=== PATIENT | female | born 1980 | race Caucasian/White ===

== ENCOUNTER 2017-08-26 15:56 | Outpatient (CLI) | payer MEDICAID ==
[2017-08-26 16:55] VITALS: BP 106/68
== END 2017-08-26 17:48 | disposition home or self-care (01) ==
LOC: TRG 15:56
PROVIDERS: ATTEND Obstetrics & Gynecology
DX: O09.523 Supervision of elderly multigravida, third trimester (principal); O47.1 False labor at or after 37 completed weeks of gestation; Z3A.38 38 weeks gestation of pregnancy
CPT/HCPCS: 59025

== ENCOUNTER 2017-09-04 14:52 | Inpatient (IN) | payer MEDICAID ==
[2017-09-04] MEDS ORDERED: BRETHINE IVP PRN ×2 (15:45→16:38)
[2017-09-04] MEDS ORDERED: ePHEDrine SULFATE IV PRN ×2 (15:45→16:38)
[2017-09-04] MEDS ORDERED: XYLOCAINE 2% INFILTRATI ONE ×2 (15:45→16:38)
[2017-09-04] MEDS ORDERED: MINERAL OIL PO PRN ×2 (15:45→16:38)
[2017-09-04] MEDS ORDERED: BRETHINE SUB-Q PRN ×2 (15:45→16:38)
[2017-09-04] MEDS ORDERED: LACTATED RINGERS 1,000 ML IV SCH (16:00)
[2017-09-04] MEDS ORDERED: PITOCin/NS 20 UNIT/1000ML DRIP 20 UNITS/1,000 ML BAG IV SCH ×2 (16:00→17:00)
[2017-09-04 16:15] LABS: Hematocrit 37.3 % (30.3-42.9); Hemoglobin 12.2 gm/dl (10.1-14.3); Mean Corpuscular HGB Conc 33 % (30-34); Mean Corpuscular Hemoglobin 30 pg (28-32); Mean Corpuscular Volume 92 fl (79-97); Platelet Count 238 K/mm3 (140-440); Red Blood Count 4.07 M/mm3 (3.65-5.03)
[2017-09-04] MEDS ORDERED: ZOFRAN IV PRN (16:38)
[2017-09-04] MEDS ORDERED: STADOL IV PRN (16:38)
[2017-09-04] MEDS ORDERED: PHENERGAN PO PRN (16:38)
--- NOTE | 2017-09-04 16:43 | History and Physical Report ---
History of Present Illness Date of examination: 09/04/17 Date of admission: 09/04/17 14:52 Chief complaint: Induction of labor History of present illness: Pt is a 37yo HF EDC 09/05/17; EGA 39 6/7 weeks presents to L&D for induction of labor per [facility] due to Oligohydramnios. She received care at [facility] since 19 weeks and course has been unremarkable except AMA for which she is co-managed by [facility]. BPP 08/19 today showed MAGUE 5.46cm. She is therefore sent to L&D for induction of labor. records are available and GBS is Positive. Past History Past Medical History: no pertinent history Past Surgical History: no surgical history [employer] History: abnormal PAP smear Social history: no significant social history, single - Obstetrical History : 3 Medications and Allergies Allergies Allergy/AdvReac Type Severity Reaction Status Date / Time No Known Allergies Allergy Unverified 08/26/17 16:12 Home Medications Medication Instructions Recorded Confirmed Last Taken Type No Known Home Medications [No 08/26/17 08/26/17 Unknown History Reported Home Medications] Active Meds: Active Medications Dinoprostone (Cervidil) 10 mg VG ONCE ONE Stop: 09/04/17 16:16 Ephedrine Sulfate (Ephedrine Sulfate) 10 mg IV Q2M PRN PRN Reason: Hypotension Fentanyl (Sublimaze) 100 mcg IV Q2H PRN PRN Reason: Labor Pain Lactated Ringer's (Lactated Ringers) 1,000 mls @ 125 mls/hr IV DIRECT FRANCI Oxytocin/Sodium Chloride (Pitocin/Ns 20 Unit/1000ml Drip) 20 units in 1,000 mls @ 125 mls/hr IV DIRECT FRANCI Mineral Oil (Mineral Oil) 30 ml PO QHS PRN PRN Reason: Constipation Terbutaline Sulfate (Brethine) 0.25 mg SUB-Q ONCE PRN PRN Reason: Hyperstimulation/Hypertonicity Terbutaline Sulfate (Brethine) 0.25 mg IVP ONCE PRN PRN Reason: Hyperstimulation/Hypertonicity Review of Systems All systems: negative - Vital Signs Vital signs: Vital Signs Temp 97.4 F L 09/04/17 15:37 Temp Pulse Resp BP Pulse Ox 97.4 F L 09/04/17 15:37 - Physical Exam Breasts: Positive: deferred Cardiovascular: Regular rate Lungs: Positive: Clear to auscultation Abdomen: Positive: normal appearance Genitourinary (Female): Positive: normal external genitalia Uterus: Positive: enlarged Extremities: Positive: normal - Obstetrical FHR: category 1 Uterine Contraction Monitor Mode: External Cervical Dilatation: 1 (per nurse) Cervical Effacement Percentage: 50 (per nurse) station: -3 Uterine Contraction Pattern: Absent Results Result Diagrams: 09/04/17 15:57 Abnormal lab results 09/04/17 Range/Units 15:57 RDW 17.0 H (13.2-15.2) % All other labs normal. Ultrasound: report reviewed Assessment and Plan - Patient Problems (1) 39 weeks gestation of Onset Date: 09/04/17 Current Visit: Yes Status: Acute Plan to address problem: A: IUP @ 39 6/7 weeks Oligohydramnios +GBS P: Admit to L&D for cervidel/pitocin induction of labor IV Ampicillin (2) Oligohydramnios in lizama in third trimester Onset Date: 09/04/17 Current Visit: Yes Status: Acute
[2017-09-04] MEDS ORDERED: PITOCin/NS 30 UNIT/500ML 30 UNITS/500 ML BAG IV SCH (17:00)
[2017-09-04] MEDS ORDERED: CERVIDIL VG ONE (17:15)
[2017-09-04] MEDS: LACTATED RINGERS 1,000 ML IV SCH ×2 (18:16→23:29)
[2017-09-04] MEDS ORDERED: AMBIEN PO PRN (21:38)
[2017-09-05] MEDS ORDERED: PITOCin/NS 30 UNIT/500ML 30 UNITS/500 ML BAG IV SCH (06:15)
[2017-09-05] MEDS: SUBLIMAZE IV PRN ×3 (09:10→14:52)
--- NOTE | 2017-09-05 11:18 | Progress Note ---
Assessment and Plan - Patient Problems (1) 39 weeks gestation of Onset Date: 09/04/17 Current Visit: Yes Status: Acute Plan to address problem: A: IUP @ 40 0/7 weeks Oligohydramnios GBS Negative P: Continue with pitocin induction of labor Expectant vaginal delivery (2) Oligohydramnios in lizama in third trimester Onset Date: 09/04/17 Current Visit: Yes Status: Acute Subjective - Subjective Date of service: 09/05/17 Principal diagnosis: IUP @ 40 0/7 weeks; Oligohydramnios Interval history: Pt is a 37yo HF EDC 09/05/17; EGA 40 0/7 weeks who presented to L&D for induction of labor per [facility] due to Oligohydramnios. She received cervidel last night and is currently on pitocin 4mu/min and jeanne q 3-4 mins Patient reports: movement normal, contractions, no new complaints, no loss of fluid, no vaginal bleeding Objective - Vital Signs Vital Signs: Vital Signs - 12hr 09/04/17 09/05/17 09/05/17 23:35 01:04 01:40 Temperature 97.2 F L Pulse Rate 73 76 82 Respiratory 18 Rate Blood Pressure 142/87 143/63 137/89 [Right] O2 Sat by Pulse 99 Oximetry 09/05/17 09/05/17 09/05/17 03:45 04:42 09:10 Temperature 97.0 F L Pulse Rate 91 H 72 Respiratory 18 18 Rate Blood Pressure 110/68 108/57 [Right] O2 Sat by Pulse 98 Oximetry 09/05/17 09/05/17 09:40 11:05 Temperature Pulse Rate Respiratory 18 16 Rate Blood Pressure [Right] O2 Sat by Pulse Oximetry - Exam Cardiovascular: Regular rate Lungs: Clear to auscultation Abdomen: Present: normal appearance, soft FHR: category 1 Uterine Contraction Monitor Mode: External Cervical Dilatation: 6 Cervical Effacement Percentage: 80 station: -2 Uterine Contraction Pattern: Regular Uterine Tone Measurement Phase: Contraction Uterine Contraction Intensity: Mild - Labs Labs: Abnormal Labs 09/04/17 15:57 RDW 17.0 H Laboratory Results - last 24 hr 09/04/17 09/04/17 09/04/17 15:57 15:57 22:23 WBC 8.1 RBC 4.07 Hgb 12.2 Hct 37.3 MCV 92 MCH 30 MCHC 33 RDW 17.0 H Plt Count 238 Hep Bs Antigen Non-reactive Blood Type A POSITIVE Antibody Screen Negative
[2017-09-05] MEDS: LACTATED RINGERS 1,000 ML IV SCH (12:03)
[2017-09-05] MEDS ORDERED: METHERGINE IM ONE ×2 (14:13→14:27)
--- NOTE | 2017-09-05 14:23 | Procedure Note ---
OB Delivery Note - Delivery Date of Delivery: 09/05/17 Surgeon: HEATHER AMAYA Estimated blood loss: other (600cc) - Vaginal Delivery presentation: vertex Delivery position: OA Intrapartum events: hemorrhage Delivery induction: cervidil Delivery augmentation: pitocin Delivery monitor: external FHT, external uterine Route of delivery: Delivery placenta: manual Delivery cord: nuchal cord (x1), 3 umbilical vessels Episiotomy: none Delivery laceration: none Anesthesia: intravenous Delivery comments: delivered OA with tight nuchal cord x1, and placed on Mom's chest for [id number] bonding and delayed cord clamping. hemorrhage managed with bimanual massage and IM Methergine. - Infant A at 1 minute: 8 at 5 minutes: 9 Infant Gender: Male (3881gms)
[2017-09-05] MEDS ORDERED: PHENERGAN PR PRN (14:30)
[2017-09-05] MEDS ORDERED: BENADRYL PO PRN (14:30)
[2017-09-05] MEDS ORDERED: PHENERGAN PO PRN (14:30)
[2017-09-05] MEDS ORDERED: LANSINOH TP PRN (14:30)
[2017-09-05] MEDS ORDERED: TYLENOL PO PRN (14:30)
[2017-09-05] MEDS ORDERED: ZOFRAN IV PRN (14:30)
[2017-09-05] MEDS ORDERED: TUCKS PAD TP PRN (14:30)
[2017-09-05] MEDS ORDERED: SODIUM CHLORIDE FLUSH SYRINGE 10 ML IV NR (15:00)
[2017-09-05] MEDS ORDERED: PITOCin/NS 20 UNIT/1000ML DRIP 20 UNITS/1,000 ML BAG IV SCH (15:00)
[2017-09-05] MEDS: NORCO 5/325 PO PRN (19:08)
[2017-09-05] MEDS ORDERED: DULCOLAX PR PRN (22:00)
[2017-09-05] MEDS ORDERED: MILK OF MAGNESIA PO PRN (22:00)
[2017-09-05] MEDS: COLACE PO SCH (23:14)
[2017-09-05] MEDS: FEOSOL PO SCH (23:14)
[2017-09-05] MEDS: MOTRIN PO SCH (23:14)
[2017-09-05] MEDS: METHERGINE PO SCH (23:15)
[2017-09-06 01:24] LABS: Hematocrit 30.6 % (30.3-42.9); Hemoglobin 10.2 gm/dl (10.1-14.3)
[2017-09-06] MEDS: MOTRIN PO SCH ×3 (05:35→22:36)
[2017-09-06] MEDS: METHERGINE PO SCH ×3 (05:35→22:36)
[2017-09-06] MEDS ORDERED: BOOSTRIX IM ONE (06:00)
--- NOTE | 2017-09-06 07:48 | Progress Note ---
Assessment and Plan - Patient Problems (1) 39 weeks gestation of Onset Date: 09/04/17 Current Visit: Yes Status: Resolved (2) Oligohydramnios in lizama in third trimester Onset Date: 09/04/17 Current Visit: Yes Status: Resolved (3) (normal spontaneous vaginal delivery) Onset Date: 09/06/17 Current Visit: Yes Status: Resolved Plan to address problem: A: S/P - PPD #1 Doing well Asymptomatic anemia - stable P: May go home tomorrow Subjective - Subjective Date of service: 09/06/17 Principal diagnosis: s/p - PPD#1 Interval history: Pt is feeling well without complaints. Bleeding improved. Patient reports: appetite normal, voiding normally, pain well controlled, ambulating normally, no dizzy ambulation, no nauseated : doing well, nursing well Objective - Vital Signs Latest vital signs: Vital Signs Temp Pulse Resp BP BP Pulse Ox 09/06/17 05:35 18 09/06/17 00:35 98.4 F 89 18 124/63 97 09/05/17 23:14 18 09/05/17 21:51 98.8 F 106 H 18 121/65 96 09/05/17 18:10 98.3 F 77 18 126/75 100 09/05/17 14:52 20 09/05/17 11:35 16 09/05/17 11:05 16 09/05/17 09:40 18 09/05/17 09:10 18 Intake and Output 09/05/17 09/06/17 09/06/17 22:59 06:59 14:59 Intake Total 120 240 Output Total 400 400 Balance -280 -160 Intake: Oral 120 240 Output: Urine 400 400 Void 400 400 Other: Total, Intake Amount 120 120 Total, Output Amount 400 400 - Exam Breasts: Present: deferred Cardiovascular: Present: Regular rate Lungs: Present: Clear to auscultation Abdomen: Present: normal appearance, soft Uterus: Present: normal, firm, fundal height below umbilicus Extremities: Present: normal - Labs Labs: Laboratory Tests 09/04/17 09/04/17 09/04/17 15:57 15:57 15:57 WBC 8.1 RBC 4.07 Hgb 12.2 Hct 37.3 MCV 92 MCH 30 MCHC 33 RDW 17.0 H Plt Count 238 RPR Nonreactive Hep Bs Antigen Blood Type A POSITIVE Antibody Screen Negative 09/04/17 09/06/17 22:23 01:14 WBC RBC Hgb 10.2 Hct 30.6 D MCV MCH MCHC RDW Plt Count RPR Hep Bs Antigen Non-reactive Blood Type Antibody Screen
[2017-09-06] MEDS ORDERED: M-M-R II VACCINE SUB-Q ONE (08:00)
[2017-09-06] MEDS ORDERED: PRENATAL VITAMIN PO SCH (10:00)
[2017-09-06] MEDS: FEOSOL PO SCH ×2 (10:06→22:36)
[2017-09-06] MEDS: COLACE PO SCH ×2 (10:06→22:36)
[2017-09-06] MEDS: NORCO 5/325 PO PRN (13:27)
--- NOTE | 2017-09-06 14:31 | Discharge Summary ---
Providers - Providers Date of Admission: 09/04/17 14:52 Date of discharge: 09/07/17 Attending physician: HEATHER AMAYA Primary care physician: HEATHER AMAYA Hospitalization Reason for admission: induction of labor, IUP at term Delivery: Episiotomy: none Laceration: none Other procedures: none complications: none Discharge diagnosis: IUP at term delivered Coulters baby: male Hospital course: Unremarkable. Condition at discharge: Good Disposition: DC-01 TO HOME OR SELFCARE - Discharge Diagnoses (1) 39 weeks gestation of Status: Resolved (2) Oligohydramnios in lizama in third trimester Status: Resolved (3) (normal spontaneous vaginal delivery) Status: Resolved Plan - Discharge Medications Prescriptions: Ferrous Sulfate [Feosol 325 MG tab] 325 mg PO BID #60 tablet Ibuprofen [Motrin 600 MG tab] 600 mg PO Q6H #30 tablet Vit-Fe Fumar-FA [ Vitamin] 1 each PO QDAY #30 tablet - Provider Discharge Summary Activity: routine, no sex for 6 weeks, no heavy lifting 4 weeks, no strenuous exercise Diet: routine Instructions: routine Additional instructions: [] Smoking cessation referral if applicable(refer to patient education folder for contact #) [] Refer to [facility]'s [facility] Booklet Call your doctor immediately for: * Fever > 100.5 * Heavy vaginal bleeding ( >1 pad per hour) * Severe persistent headache * Shortness of breath * Reddened, hot, painful area to leg or breast * Drainage or odor from incision. * Keep incision clean and dry at all times and follow doctor's instructions regarding bathing/showering - Follow up plan Follow up: HEATHER AMAYA MD [Primary Care Provider] - 6 Weeks ANTONELLA NICHOLS CNM [Advanced Practice Nurse] - 6 Weeks
[2017-09-07] MEDS: METHERGINE PO SCH (05:45)
[2017-09-07] MEDS: MOTRIN PO SCH ×2 (05:46→12:22)
[2017-09-07 09:35] VITALS: BP 103/53
[2017-09-07] MEDS: COLACE PO SCH (12:22)
[2017-09-07] MEDS: FEOSOL PO SCH (12:22)
== END 2017-09-07 16:18 | disposition home or self-care (01) | DRG 774 ==
LOC: LD 14:52 → OB 09-05 18:02
PROVIDERS: ADMIT Obstetrics & Gynecology; ATTEND Obstetrics & Gynecology
PROC: 10E0XZZ Delivery of Products of Conception, External Approach (ICD-10-PCS; principal; 2017-09-05)
PROC: 3E0P7VZ Introduction of Hormone into Female Reproductive, Via Natural or Artificial Opening (ICD-10-PCS; 2017-09-05)
PROC: 3E0234Z Introduction of Serum, Toxoid and Vaccine into Muscle, Percutaneous Approach (ICD-10-PCS; 2017-09-07)
DX: O41.03X0 Oligohydramnios, third trimester, not applicable or unspecified (principal); O72.1 Other immediate postpartum hemorrhage; Z3A.39 39 weeks gestation of pregnancy; Z37.0 Single live birth; Z23 Encounter for immunization; O69.1XX0 Labor and delivery complicated by cord around neck, with compression, not applicable or unspecified
CPT/HCPCS: 36415; 59200; 85014; 85018; 85027; 86592; 86706; 86850; 86900; 86901; 99211; G0463; J2210; J2590; J3010; J7120